=== PATIENT | male | born 1960 | race Caucasian/White ===

== ENCOUNTER → 2018-01-21 | Outpatient (CLI) | payer OTHER | LOC: MRI 14:57 | PROVIDERS: ATTEND Nurse Practitioner Family | DX: H90.3 Sensorineural hearing loss, bilateral (principal); H90.A22 Sensorineural hearing loss, unilateral, left ear, with restricted hearing on the contralateral side; H93.12 Tinnitus, left ear; I10 Essential (primary) hypertension ==

== ENCOUNTER → 2018-01-28 | Outpatient (CLI) | payer OTHER ==
--- NOTE | 2018-01-30 11:53 | CT ---
EXAM DESCRIPTION: Internal Auditory Canal CT CLINICAL HISTORY: 57 years Male, SENSORINEURAL HEARING LOSS COMPARISON: None. TECHNIQUE: Transaxial images were obtained without intravenous contrast media. Sagittal and coronal reconstruction was performed.This exam was performed according to our departmental dose-optimization program, which includes automated exposure control, adjustment of the mA and/or kV according to patient size and/or use of iterative reconstruction technique. FINDINGS: Portions of the brain parenchyma seen are unremarkable. A megaly cisterna magna is noted. The examination reveals mild mucosal sinus disease in the right sphenoid sinus air cell. The remainder the paranasal sinuses imaged are normal. The orbits as imaged are normal. The internal auditory canals are symmetric. No cerebral pontine angle mass is detected. The mastoid sinus air cells are clear. The ossicular chain is in normal position. The cochlea and semicircular canals are normal bilaterally. IMPRESSION: Normal computerized axial tomography of the internal auditory canals. Minimal mucosal sinus disease is observed in the right sphenoid sinus air cell. Electronically signed by: Milind Chavez MD 01/30/2018 11:52 AM CDT
== END ==
LOC: CT 15:33
PROVIDERS: ATTEND Student in an Organized Health Care Education/Training Program
DX: H90.A22 Sensorineural hearing loss, unilateral, left ear, with restricted hearing on the contralateral side (principal)

== ENCOUNTER → 2018-10-08 | Outpatient (CLI) | payer OTHER ==
--- NOTE | 2018-10-08 15:16 | MRI ---
Study: MRI of the Left Hip. Indication: ARTHROPATHIES LEFT HIP Technique: Multiplanar, multi sequence MRI of the left hip was obtained without intravenous contrast. Comparison: None. Findings: Grade 3 chondral thinning of the superior and anterior superior aspects of the left hip joint noted. No full-thickness chondral defect. No acute fracture or osteonecrosis. Tiny left hip effusion. Undersurface fraying of the anterior superior left hip labrum. Lumbosacral fusion construct partially visualized. Mild pubic symphysis osteoarthritis. Tendinosis bilateral hamstring tendon origins. Tendinosis bilateral gluteus minimus/medius tendon insertions with mild bilateral greater trochanter bursal edema, right greater than left. Impression: Mild left hip osteoarthritis with a tiny joint effusion and subtle undersurface fraying of the anterior superior left hip labrum. No acute fracture or osteonecrosis. Additional findings as above. Electronically signed by: Leobardo Joy MD 10/08/2018 3:14 PM [employer]
== END ==
LOC: MRI 10:41
PROVIDERS: ATTEND Nurse Practitioner Family
DX: M12.852 Other specific arthropathies, not elsewhere classified, left hip (principal)

== ENCOUNTER → 2018-11-11 | Outpatient (CLI) | payer OTHER ==
--- NOTE | 2018-11-12 09:18 | RAD ---
Single frontal view pelvis Indication: OTHER SPECIFIC ARTHROPATHIES Comparison: None Impression: No fracture or malalignment. Minimal bilateral hip joint space narrowing. Small bilateral cam deformities. Lumbosacral fusion construct noted. Electronically signed by: Leobardo Joy MD 11/12/2018 9:15 AM [facility]
--- NOTE | 2018-11-12 09:20 | RAD ---
EXAM DESCRIPTION: Hip,Left 2 Views CLINICAL HISTORY: 58 years Male, OTHER SPECIFIC ARTHROPATHIES COMPARISON: None available. FINDINGS: The visualized bones are well-mineralized.No acute fracture or dislocation. Offset is noted at the femoral head neck junction which can be seen with cam-type femoral acetabular impingement. The soft tissues appear grossly unremarkable. IMPRESSION: Offset is noted at the femoral head neck junction which can be seen with cam-type femoral acetabular impingement. Electronically signed by: Patricia Hoffmann MD 11/12/2018 9:18 AM [facility]
== END ==
LOC: RAD 15:34
PROVIDERS: ATTEND Nurse Practitioner Family
DX: M12.852 Other specific arthropathies, not elsewhere classified, left hip (principal); Z98.1 Arthrodesis status

== ENCOUNTER 2018-11-27 05:47 | Day surgery (SDC) | payer OTHER ==
--- NOTE | 2018-11-25 18:41 | RAD ---
EXAM DESCRIPTION: Chest,2 Views CLINICAL HISTORY: PREOP COMPARISON: None TECHNIQUE: PA/lateral FINDINGS: There is no acute appearing cardiac or pulmonary abnormality. Heart size is normal with normal pulmonary vascularity. No pleural effusion or pneumothorax. Lungs are clear with no consolidating infiltrate. Lateral view shows intact sternum and T-spine. IMPRESSION: No acute process is identified in the chest. Electronically signed by: Hari Irby MD 11/25/2018 6:38 PM [employer]
[~2018-11-27 05:47] MED LIST: ELECTROLYTE-A 1,000 ML IVS ONE
[2018-11-27] MEDS ORDERED: PROPOFOL 200 MG/20 ML VIAL IV ONE (07:00)
[2018-11-27] MEDS ORDERED: METOCLOPRAMIDE HCL INJ 10 MG/2 ML VIAL ONE (07:00)
[2018-11-27] MEDS ORDERED: ceFAZolin SODIUM 1 GM VIAL ONE (07:00)
[2018-11-27] MEDS ORDERED: raNITIdine HCL INJ 25 MG/ML VIAL ONE (07:00)
[2018-11-27] MEDS ORDERED: DEXAMETHASONE INJ 10 MG/ML VIAL ONE (07:00)
[2018-11-27] MEDS ORDERED: KETOROLAC TROMETHAMINE INJ 30 MG/ML VIAL ONE (07:00)
[2018-11-27] MEDS ORDERED: ePHEDrine SULF 50 MG/ML ONE (07:00)
[2018-11-27] MEDS ORDERED: SODIUM CHL 0.9% 100ML MINI-BAG 100 ML IVPB ONE (07:00)
[2018-11-27] MEDS ORDERED: LIDOCAINE 1% 10 ML VIAL INJ ONE (07:00)
[2018-11-27] MEDS ORDERED: BUPIVACAINE 0.25% W/EPI 50 ML VIAL INJ ONE (07:27)
[2018-11-27] MEDS: LACTATED RINGERS 1,000 ML ONE ×2 (09:20→12:21)
[2018-11-27] MEDS ORDERED: MIDAZOLAM INJ 2 MG/2 ML VIAL ONE (10:21)
[2018-11-27] MEDS ORDERED: fentaNYL CITRATE INJ 50 MCG/ML AMP ONE (10:21)
[2018-11-27] MEDS ORDERED: HYDROmorphone HCL INJ 2 MG/ML VIAL ONE (11:49)
[2018-11-27] MEDS ORDERED: HYDROcodone 7.5MG/APAP 325MG 1 EA TAB ONE (13:19)
--- NOTE | 2018-11-27 13:22 | OP ---
DATE OF PROCEDURE: 11/27/18 PREOPERATIVE DIAGNOSIS: 1. Left inguinal hernia. POSTOPERATIVE DIAGNOSIS: 1. Left inguinal hernia, direct type. PROCEDURE: 1. Repair of left inguinal hernia with Surgimesh Plug and Patch. SURGEON: Bj Carlos MD. ENVIRONMENT FRIENDLY LANDSCAPE DESIGNER: None. ANESTHESIA: General laryngeal mask anesthesia and local infiltration of 0.25% Marcaine with epinephrine. INDICATION: The patient is a 58-year-old male who was roping and injured himself. Afterwards, he has had left groin and hip pain and has a left inguinal hernia. The patient was brought to the Surgical Suite today for hernia repair after the risks, benefits and alternatives to the procedure were discussed and accepted. FINDINGS: The patient had a direct defect that almost involved the whole floor of the canal. There was no indirect component identified and no sliding component. PROCEDURE: After adequate general laryngeal mask anesthesia was obtained, the patient was prepped and draped in the usual sterile manner in the supine position. At this point, a surgical time-out was taken. The left lower quadrant was infiltrated with local anesthesia and then an oblique incision was made with a sharp knife. Dissection was carried down through the skin and subcutaneous tissue to the external oblique fascia using electrocautery and blunt dissection. The self-retaining retractor was placed at this level. The external oblique fascia was then opened in the direction of the fibers through the external inguinal ring. The cord and the floor of the canal were dissected free from the external oblique fascia and the self-retaining retractor was placed at this level. The cord was then dissected free from the floor of the canal. A half inch [place] drain was placed around it for traction. The cord was then dissected free from the direct hernia. At this point, the cord was explored and no indirect hernia sac was identified. The direct hernia was opened and the floor of the canal was freed up using gentle finger dissection. The Surgimesh patch was then introduced under the defect and sutured circumferentially with interrupted 2-0 Vicryl sutures. When this was done, the wound was irrigated with saline. Hemostasis was noted to be adequate. The patch was then sutured over the canal and around the cord in the usual manner with interrupted 2-0 Vicryl sutures. When this was done, the wound was irrigated with saline. Hemostasis was noted to be adequate. The cord and subcutaneous tissue above, below and lateral to the incision were infiltrated with local anesthesia. The Mary's fascia was approximated with interrupted 3- 0 Chromic suture. Skin edges were approximated with skin stapler. Sterile pressure dressing was applied. The patient was awakened and taken to the Recovery Room in good and stable condition. Estimated blood loss was less than 50 mL. #[id number] [facility]
[2018-11-27 14:16] VITALS: BP 140/86; TEMP 97.7; O2SAT 98
== END 2018-11-27 13:58 | disposition home or self-care (01) ==
LOC: AMB 05:47
PROVIDERS: ATTEND Surgery
DX: K40.90 Unilateral inguinal hernia, without obstruction or gangrene, not specified as recurrent (principal); I10 Essential (primary) hypertension; K21.9 Gastro-esophageal reflux disease without esophagitis; Z86.010 Personal history of colon polyps; Z88.8 Allergy status to other drugs, medicaments and biological substances; Z79.899 Other long term (current) drug therapy
CPT/HCPCS: 00830; 36415; 49505; 71046; 80053; 81001; 85025; 93005; C1781; J0690; J1100; J1170; J1885; J2250; J2765; J2780; J3010; J3490; J7050; J7120

== ENCOUNTER → 2020-03-09 | Outpatient (CLI) | payer OTHER ==
--- NOTE | 2020-03-10 08:19 | RAD ---
EXAM DESCRIPTION: Fingers x-ray,Right three views CLINICAL HISTORY: 59 years Male, CRUSHING INJURY OF RIGHT THIRD AND FOUTH DIGIT COMPARISON: None. FINDINGS: Right fingers x-ray three views. Degenerative narrowing of the DIP and PIP joints of the fifth finger. Mild degenerative changes at the second and third metacarpal phalangeal joints. IMPRESSION: Negative for fracture. Electronically signed by: Hari Irby MD 03/10/2020 8:17 AM CDT
== END ==
LOC: RAD 16:16
PROVIDERS: ATTEND Nurse Practitioner Family
DX: S67.192A Crushing injury of right middle finger, initial encounter (principal)

== ENCOUNTER → 2020-06-10 | Outpatient (CLI) | payer SELFPAY | LOC: LAB.O 07:31 | PROVIDERS: ATTEND Nurse Practitioner Family | DX: K25.0 Acute gastric ulcer with hemorrhage (principal); N17.9 Acute kidney failure, unspecified ==

== ENCOUNTER → 2020-06-14 | Outpatient (CLI) | payer SELFPAY | LOC: LAB.O 13:27 | PROVIDERS: ATTEND Nurse Practitioner Family | DX: N17.9 Acute kidney failure, unspecified (principal); K25.0 Acute gastric ulcer with hemorrhage ==

== ENCOUNTER → 2020-06-18 | Outpatient (CLI) | payer SELFPAY | LOC: LAB.O 09:32 | PROVIDERS: ATTEND Nurse Practitioner Family | DX: N17.9 Acute kidney failure, unspecified (principal) ==